=== PATIENT | male | born 1980 | race Caucasian/White ===

== ENCOUNTER 2020-09-28 10:02 | Emergency (ER) | payer SELFPAY ==
[2020-09-28] MEDS ORDERED: KETOROLAC TROMETHAMINE INJ/PF 30 MG/1 ML SDV IV ONE (10:52)
[2020-09-28 11:03] LABS: ABSOLUTE BASOPHILS # (AUTO) 0.1 10^3/uL (0.0-0.2); ABSOLUTE EOSINOPHILS # (AUTO) 0.1 10^3/uL (0.0-0.6); ABSOLUTE LYMPHOCYTES (AUTO) 1.8 10^3/uL (0.5-4.7); ABSOLUTE MONOCYTES (AUTO) 0.9 10^3/uL (0.1-1.4); ABSOLUTE NEUT (AUTO) 7.3 10^3/uL (1.7-8.2); EOSINOPHILS % (AUTO) 0.7 % (0-6); HEMOGLOBIN 17.3 g/dL (13.5-17.0); LYMPHOCYTES % (AUTO) 17.9 % (13-45); MEAN CORPUSCULAR HEMOGLOBIN 33.9 pg (27.0-33.4); MEAN CORPUSCULAR HGB CONC 35.4 g/dL (32.0-36.0); MEAN CORPUSCULAR VOLUME 96 fl (80-97); PLATELET COUNT 284 10^3/uL (150-450); RED BLOOD COUNT 5.12 10^6/uL (4.35-5.55); RED CELL DISTRIBUTION WIDTH 12.6 % (11.5-14.0); SEGMENTED NEUTROPHILS % (AUTO) 71.4 % (42-78); TOTAL CELLS COUNTED % (AUTO) 100 %; WHITE BLOOD COUNT 10.2 10^3/uL (4.0-10.5)
[2020-09-28 11:06] LABS: APPEARANCE,URINE CLEAR; BILIRUBIN,URINE NEGATIVE (NEGATIVE); COLOR,URINE YELLOW; GLUCOSE, URINE NEGATIVE (NEGATIVE); KETONES,URINE NEGATIVE (NEGATIVE); LEUKOCYTE ESTERASE,URINE NEGATIVE (NEGATIVE); NITRITE,URINE NEGATIVE (NEGATIVE); PROTEIN,URINE 100 mg/dL (NEGATIVE); UROBILINOGEN,URINE NEGATIVE mg/dL (<2.0)
--- NOTE | 2020-09-28 11:06 | ER Document Report ---
ED GI/ - General Chief Complaint: Flank Pain Stated Complaint: RIGHT FLANK PAIN Time Seen by Provider: 09/28/20 10:33 Primary Care Provider: RAYO MCDONNELL FNP-C [Primary Care Provider] - Follow up as needed Notes: HPI: 40-year-old male who presents today stating around 5 days ago he started develop some right lateral upper rib/back pain. He states he was taking down [place] lights when this started. He believes he "pinched nerve". He denies any lower abdominal pain, radiation to the abdomen, abdominal pain, nausea, vomiting, or fevers. The pain to the right ribs is slightly pleuritic. Worse when he moves his arm and takes a deep breath. No calf pain, leg swelling, or arm swelling. No weakness or numbness to the extremities. ROS: See HPI All other review of systems reviewed and otherwise negative Reviewed vital signs and nursing note as charted by RN. PHYSICAL EXAM: CONSTITUTIONAL: Alert and oriented and responds appropriately to questions. Well-appearing; well-nourished HEAD: Normocephalic; atraumatic EYES: PERRL; Conjunctivae clear, sclerae non-icteric ENT: Normal nose; no rhinorrhea; moist mucous membranes; pharynx without lesions noted NECK: Supple without meningismus; non-tender; no cervical lymphadenopathy, no masses CARD: Regular rate and rhythm; no murmurs; symmetric distal pulses RESP: Normal chest excursion without splinting or tachypnea; tenderness to palpation that is easily reproducible to the right upper lateral ribs. No swelling, crepitus, or erythema; breath sounds clear and equal bilaterally; no wheezes, no rhonchi, no rales ABD/GI: Normal bowel sounds; non-distended; soft, non-tender; no palpable organomegaly or masses BACK: The back appears normal and is non-tender to palpation; no CVA tenderness, swelling, erythema EXT: Normal ROM in all joints; non-tender to palpation; no edema SKIN: No acute lesions noted NEURO: CN 2-12 intact; 5/5 bilateral upper and lower extremity strength with sensation intact to light touch PSYCH: The patient's mood and manner are appropriate. Grooming and personal hygiene are appropriate. TRAVEL OUTSIDE OF THE [place] IN LAST 30 DAYS: No - Related Data Allergies/Adverse Reactions: No Known Allergies Allergy (Verified 03/28/14 13:57) Past Medical History - Social History Smoking Status: Current Every Day Smoker Frequency of alcohol use: Occasional Drug Abuse: Marijuana Family History: None Patient has homicidal ideation: No - Past Medical History Cardiac Medical History: Reports: Hx Hypertension - NO MEDS Denies: Hx Coronary Artery Disease, Hx Heart Attack Pulmonary Medical History: Denies: Hx Asthma, Hx Bronchitis, Hx COPD, Hx Pneumonia Neurological Medical History: Denies: Hx Cerebrovascular Accident, Hx Seizures Renal/ Medical History: Reports: Hx Kidney Stones GI Medical History: Denies: Hx Hepatitis Musculoskeletal Medical History: Denies Hx Arthritis Psychiatric Medical History: Denies: Hx Depression Infectious Medical History: Denies: Hx Hepatitis Past Surgical History: Reports: Hx Urinary Tract Surgery - HYPOSPADIAS REPAIR - Immunizations Hx Diphtheria, Pertussis, Tetanus Vaccination: Yes - <5 yr Physical Exam - Vital signs Vitals: Temp Pulse Resp BP Pulse Ox 98.3 F 94 16 148/96 H 99 09/28/20 10:07 09/28/20 10:07 09/28/20 10:07 09/28/20 10:07 09/28/20 10:07 Course - Re-evaluation Re-evalutation: 09/28/20 11:05 Given the above history and physical, with reproducible pain to the right upper lateral ribs, I will obtain an x-ray of the chest to evaluate for the possibility of a pneumonia or small pneumothorax. Patient is not tachycardic or hypoxic. No calf pain or leg swelling. I do believe pulmonary embolism to be unlikely. Patient's pain is well above the CVA region and the patient has no radiation to his abdomen or lower groin. I do believe kidney stone is unlikely. EKG shows heart of 80, normal sinus rhythm, normal axis, no ST elevation or depression. 09/28/20 11:55 Labs, white blood cell count, and x-ray of the chest as recorded. No change in exam. No change in location of patient's pain. Patient is due for narcotic pain medications. Patient still looks excellent with good oxygen saturation. Nontachycardic. Given the above history, physical, repeat exam, imaging and labs, patient will be discharged home with strict return precautions and follow-up with the primary care physician. - Vital Signs Vital signs: Temp Pulse Resp BP Pulse Ox 98.3 F 94 16 148/96 H 99 09/28/20 10:07 09/28/20 10:07 09/28/20 10:07 09/28/20 10:07 09/28/20 10:07 - Laboratory Results Result Diagrams: 09/28/20 10:38 09/28/20 10:38 Laboratory Results Interpreted: 09/28/20 09/28/20 10:32 10:38 Hgb 17.3 H MCH 33.9 H Urine Protein 100 H Urine Ascorbic Acid 20 H Critical Laboratory Results Reviewed: No Critical Results - Radiology Results Critical Radiology Results Reviewed: No Critical Results Discharge - Discharge Clinical Impression: Rib pain on right side Condition: Good Disposition: HOME, SELF-CARE Additional Instructions: Come back immediately for any increased pain, change in location or quality of pain, fevers or vomiting, leg swelling, or any other acute problems. Prescriptions: Hydrocodone/Acetaminophen [[place] 5-325 mg Tablet] 1 tab PO Q8 #10 tablet Referrals: RAYO MCDONNELL FNP-C [Primary Care Provider] - Follow up as needed
[2020-09-28 11:20] LABS: ANION GAP 8 (5-19); BLOOD UREA NITROGEN 10 mg/dL (7-20); CARBON DIOXIDE 29 mmol/L (22-30); CHLORIDE 100 mmol/L (98-107); GLUCOSE 108 mg/dL (75-110); POTASSIUM 4.4 mmol/L (3.6-5.0)
--- NOTE | 2020-09-28 11:53 | RADIOLOGY REPORT (SQ) ---
EXAM DESCRIPTION: CHEST 2 VIEWS IMAGES COMPLETED DATE/TIME: 09/28/2020 11:15 am REASON FOR STUDY: 4; right rib pain COMPARISON: 03/24/2016 EXAM PARAMETERS: NUMBER OF VIEWS: two views TECHNIQUE: Digital Frontal and Lateral radiographic views of the chest acquired. RADIATION DOSE: NA LIMITATIONS: none FINDINGS: LUNGS AND PLEURA: Minimal atelectasis at the right base. Left lung is clear. MEDIASTINUM AND HILAR STRUCTURES: No masses or contour abnormalities. HEART AND VASCULAR STRUCTURES: Heart normal size. No evidence for failure. BONES: No acute findings. HARDWARE: None in the chest. OTHER: No other significant finding. IMPRESSION: Right basilar atelectasis. TECHNICAL DOCUMENTATION: JOB ID: [id number] 2010 [employer]- All Rights Reserved Reading location - IP/workstation name: [email or web address]
[2020-09-28 12:14] VITALS: BP 154/107
--- NOTE | 2020-09-28 23:04 | EKG REPORT ---
SEVERITY:- BORDERLINE ECG - SINUS RHYTHM BORDERLINE PROLONGED QT INTERVAL : Confirmed by: Day Pittman 28-Sep-2020 23:03:26
== END 2020-09-28 12:15 | disposition home or self-care (01) ==
LOC: ER 10:02
DX: R07.81 Pleurodynia (principal); R10.9 Unspecified abdominal pain; F17.200 Nicotine dependence, unspecified, uncomplicated; I10 Essential (primary) hypertension; Z87.442 Personal history of urinary calculi
CPT/HCPCS: 93005; 99284; 36415; 85025; 80048; 81001; 71046; 93010; J1885